=== PATIENT | male | born 1980 | race African-American/Black ===

== ENCOUNTER 2020-01-15 22:44 | Emergency (ER) | payer OTHER ==
[~2020-01-15] VITALS: Ht 180.3 cm; Wt 99.8 kg
[2020-01-15 22:48] VITALS: BP 166/89
--- NOTE | 2020-01-15 22:48 | NUR ---
ED Nurse Note: Patient PIETER MITTAL c/o chest pain that started couple minutes ago at the back of the copy worker's car. Per EMS, pt refused treatment en route. No stated medical history. Afebrile. Not in any distress. [employer] at bedside. Pt is under custody.
--- NOTE | 2020-01-15 22:50 | NUR ---
ED Nurse Note: ERMD at bedside. Pt is uncooperative and refused any treatment. Explained risk and benefits, verbally understood.
--- NOTE | 2020-01-15 22:52 | Emergency Room Report ---
History of Present Illness General Chief Complaint: Chest Pain Source: Patient, EMS Present Illness HPI This a 40-year-old male with unknown past medical history. Patient presents with chief complaint of chest pain. Patient was arrested and was in police custody. He started complaining of chest pain. Then he denies any pain. EMS was called. He was not cooperative. He refused aspirin or nitroglycerin. Here patient refused to answer any question. He said the pain went away. He denies any provocation. Denies any radiation. No nausea no vomiting. No fever chills pain or shortness of breath. Patient was not cooperative in his history. Allergies: Coded Allergies: No Known Allergies (Unverified , 01/15/20) COVID-19 Screening Contact w/high risk pt: No Recent Travel to affected area: No Experienced COVID-19 symptoms?: No Patient History Past Medical History: see triage record, old chart reviewed Past Surgical History: unable to obtain Pertinent Family History: unable to obtain Immunizations: other Reviewed Nursing Documentation: PMH: Agreed; PSxH: Agreed Nursing Documentation-PMH Past Medical History: No Stated History Review of Systems Eye: Denies: eye pain, blurred vision ENT: Denies: ear pain, nose congestion, throat swelling Respiratory: Denies: cough, shortness of breath Cardiovascular: Reports: chest pain; Denies: palpitations Gastrointestinal: Denies: abdominal pain, diarrhea, nausea, vomiting Musculoskeletal: Denies: back pain, joint pain Skin: Denies: rash Neurological: Denies: headache, numbness Endocrine: Denies: increased thirst, increased urine Hematologic/Lymphatic: Denies: easy bruising All Other Systems: negative except mentioned in HPI Physical Exam Vital Signs Date Time Temp Pulse Resp B/P (MAP) Pulse Ox O2 Delivery O2 Flow Rate FiO2 01/15/20 22:41 97.9 101 18 166/89 (114) 100 Room Air Vitals with high blood pressure Sp02 EP Interpretation: reviewed, normal General Appearance: well appearing, no apparent distress, alert Head: normocephalic, atraumatic Eyes: bilateral eye PERRL, bilateral eye EOMI ENT: hearing grossly normal, normal pharynx Neck: full range of motion, supple, no meningismus Respiratory: chest non-tender, lungs clear, normal breath sounds Cardiovascular #1: regular rate, rhythm, no murmur Gastrointestinal: normal bowel sounds, non tender, no mass, no organomegaly, no bruit, non-distended Musculoskeletal: back normal, normal range of motion, gait/station normal Psychiatric: mood/affect normal Medical Decision Making Diagnostic Impression: Primary Impression: Chest pain Qualified Codes: R07.9 - Chest pain, unspecified ER Course Presents with chest pain. Very vague in nature. He is not cooperative. He refused any treatment. He did consent to an EKG. EKG Diagnostic Results Rate: normal Rhythm: NSR ST Segments: no acute changes Last Vital Signs Date Time Temp Pulse Resp B/P (MAP) Pulse Ox O2 Delivery O2 Flow Rate FiO2 01/15/20 22:41 97.9 101 18 166/89 (114) 100 Room Air Status: unchanged Disposition: LAW ENFORCEMENT IN CUST Condition: Stable Patient Instructions: Nonspecific Chest Pain Additional Instructions: Follow-up with your doctor in 7 days. You refused treatment here. Return if symptoms worsen. José Miguel Jacobson MD Jan 15, 2020 22:52
[2020-01-15 22:55] VITALS: BP 166/89
--- NOTE | 2020-01-15 22:55 | NUR ---
ED Nurse Note: Pt cleared by ERMD for discharge. DC instruction was given and explained to pt and verbalized understanding of teachings. All medical deviecs such as ID band removed. Pt is AAO x4, ambulatory and left with all personal belongings. Pt is under custody. Accompanied by [employer].
== END 2020-01-15 23:00 ==
LOC: EDBD 22:44 → EMR 22:58
DX: R07.9 Chest pain, unspecified (principal)
CPT/HCPCS: 99281